=== PATIENT | female | born 1950 | race Caucasian/White ===

== ENCOUNTER 2018-04-27 18:17 | Emergency (ER) | payer OTHER ==
[2018-04-27] MEDS: MECLIZINE 12.5 MG TAB PO (21:29)
[2018-04-27] MEDS: ACETAMINOPHEN 325 MG TAB PO (21:30)
[2018-04-27] MEDS: SOD CHLORIDE 0.9% 1,000 ML IV (21:32)
[2018-04-27 21:41] LABS: ADD MAN DIFF? NO
[2018-04-27 21:43] LABS: BASOPHIL # 0.1 10^3/ul (0.0-0.1); BASOPHILS % 0.7 % (0.0-2.0); EOSINOPHILS % 0.2 % (0.0-7.0); HEMATOCRIT 38.4 % (37.0-47.0); HEMOGLOBIN 12.9 g/dl (12.0-16.0); LYMPHOCYTES # 2.7 10^3/ul (0.8-2.9); LYMPHOCYTES % 28.4 % (15.0-51.0); MEAN CORPUSCULAR HEMOGLOBIN 31.9 pg (29.0-33.0); MEAN CORPUSCULAR HGB CONC 33.6 g/dl (32.0-37.0); MEAN CORPUSCULAR VOLUME 94.8 fl (82.0-101.0); MEAN PLATELET VOLUME 9.6 fl (7.4-10.4); MONOCYTE # 0.7 10^3/ul (0.3-0.9); MONOCYTES % 7.1 % (0.0-11.0); NEUTROPHIL # 6.1 10^3/ul (1.6-7.5); NEUTROPHILS % 63.2 % (39.0-77.0); PLATELET COUNT 281 10^3/UL (140-415); RED BLOOD COUNT 4.05 10^6/ul (4.20-5.40); RED CELL DISTRIBUTION WIDTH 13.2 % (11.5-14.5)
[2018-04-27 21:43] LABS: WHITE BLOOD COUNT 9.7 10^3/ul (4.8-10.8)
[2018-04-27 22:02] LABS: ANION GAP 11 (5-13); BLOOD UREA NITROGEN 16 mg/dl (7-20); CALCIUM 9.3 mg/dl (8.4-10.2); CARBON DIOXIDE 24 mmol/L (21-31); CHLORIDE 107 mmol/L (97-110); CREATININE 0.66 mg/dl (0.44-1.00); Estimated GFR > 60 mL/min (>60); GLUCOSE 98 mg/dl (70-220); SODIUM 142 mmol/L (135-144)
== END 2018-04-27 23:45 | disposition home or self-care (01) ==
LOC: E/R 18:17
DX: H81.399 Other peripheral vertigo, unspecified ear (principal); R40.2142 Coma scale, eyes open, spontaneous, at arrival to emergency department; R40.2252 Coma scale, best verbal response, oriented, at arrival to emergency department; R40.2362 Coma scale, best motor response, obeys commands, at arrival to emergency department
CPT/HCPCS: 36415; 70450; 80048; 85025; 93005; 96360; 99285-25

== ENCOUNTER 2018-10-04 09:27 | Day surgery (SDC) | payer OTHER ==
[2018-10-04] MEDS ORDERED: CEFAZOLIN 2 GM/50 ML (PMX) 50 ML IVPB (10:00)
[2018-10-04] MEDS ORDERED: SOD CHLORIDE 0.9% 1,000 ML IV (10:00)
[2018-10-04] MEDS ORDERED: BUPIVACAINE 0.25% (MPF) 30 ML INJ (11:34)
[2018-10-04] MEDS ORDERED: POLYMYXIN/BACITRACIN 1L IRRIG (11:34)
[2018-10-04] MEDS ORDERED: ROCURONIUM 50 MG INJ (12:01)
[2018-10-04] MEDS ORDERED: PROPOFOL 100 ML (12:01)
[2018-10-04] MEDS ORDERED: LIDOCAINE 2% (SDV) 5 ML INJ (12:01)
[2018-10-04] MEDS ORDERED: ONDANSETRON 4 MG INJ (12:04)
[2018-10-04] MEDS ORDERED: DEXAMETHASONE 4 MG/ML 5 ML INJ (12:04)
[2018-10-04] MEDS ORDERED: CEFAZOLIN 1 GM INJ (12:04)
[2018-10-04] MEDS ORDERED: SUGAMMADEX SODIUM 200 MG/2 ML VIAL IV (12:42)
[2018-10-04] MEDS: BUPIVACAINE 0.25% (MPF) 30 ML INJ (12:51)
[2018-10-04] MEDS: POLYMYXIN/BACITRACIN 1L IRRIG IRR (12:51)
[2018-10-04] MEDS ORDERED: LABETALOL HCL 20MG INJ IV (13:00)
[2018-10-04] MEDS ORDERED: MEPERIDINE 25 MG INJ IV (13:00)
[2018-10-04] MEDS ORDERED: ALBUTEROL 0.083% (NEB) 2.5 MG/3 ML AMP HHN (13:00)
[2018-10-04] MEDS ORDERED: DIPHENHYDRAMINE 50 MG INJ IV (13:00)
[2018-10-04] MEDS ORDERED: hydrALAzine 20 MG INJ IV (13:00)
[2018-10-04] MEDS ORDERED: OXYCODONE/ACETAMINOPHEN (5/325) TAB PO ×2 (13:00)
[2018-10-04] MEDS ORDERED: EPHEDrine 25 MG/5 ML SYG IV (13:00)
[2018-10-04] MEDS ORDERED: HYDROmorphONE 1 MG/5 ML IV SYRINGE IV (13:00)
[2018-10-04] MEDS ORDERED: FENTAnyl 50 MCG/ML VIAL IV ×3 (13:00)
[2018-10-04] MEDS: HYDROCODONE/APAP (5/325) TAB PO (13:30)
[2018-10-04] MEDS: HYDROmorphONE 1 MG/5 ML IV SYRINGE IV ×2 (13:30→13:47)
[2018-10-04] MEDS: ONDANSETRON 4 MG INJ IV (13:31)
[2018-10-04] MEDS: KETOROLAC 30 MG INJ IV (14:34)
== END 2018-10-04 15:29 | disposition home or self-care (01) ==
LOC: SDS 09:27
DX: K43.6 Other and unspecified ventral hernia with obstruction, without gangrene (principal); E03.9 Hypothyroidism, unspecified
CPT/HCPCS: 49653